=== PATIENT | female | born 1930 | race Caucasian/White ===

== ENCOUNTER 2017-01-29 06:31 | Day surgery (SDC) | payer MEDICARE, BC ==
[~2017-01-29] VITALS: Ht 165.1 cm; Wt 55.9 kg
== END 2017-01-29 09:37 | disposition home or self-care (01) ==
LOC: RAD.S 06:31
PROC: 0QB13ZX Excision of Sacrum, Percutaneous Approach, Diagnostic (ICD-10-PCS; principal; 2017-01-29)
DX: C79.51 Secondary malignant neoplasm of bone (principal); Z85.51 Personal history of malignant neoplasm of bladder; Z79.899 Other long term (current) drug therapy